=== PATIENT | male | born 1955 | race Caucasian/White ===

== ENCOUNTER 2019-06-08 13:07 | Inpatient (IN) | payer MEDICARE, OTHER, SELFPAY ==
[2019-06-08] VITALS (8 sets, daily range): BP systolic 93–144; BP diastolic 45–74; PULSE 62–67; RESP 16–20; TEMP 36.4–36.8; O2SAT 96–99; BMI 33.9
--- NOTE | ~2019-06-08 | CT_ITS ---
EXAMINATION: CT abdomen pelvis wo con DATE: 06/08/2019 14:27 INDICATION: Abdominal pain, nausea and vomiting, renal cell carcinoma metastatic to the lungs TECHNIQUE: Computed tomography (CT) of the abdomen and pelvis was performed without intravenous contr ast. The dose-length product (DLP) was 1146.87 mGy-cm. Automated exposure control and iterative recon struction technique were employed. COMPARISON: None FINDINGS: There are greater than 10 nodules of the visualized lung bases which measure up to 7 mm. Th ere is no pleural effusion. The heart size is normal. The liver, spleen, pancreas, gallbladder, and l eft adrenal gland are normal. There appear to be changes of right nephrectomy and adrenalectomy. Ther e is a 2.5 x 1.6 cm periportal soft tissue density (image 62). Punctate nonobstructing calculi of the right kidney measure up to 2 mm. There is a 4 mm hemorrhagic cyst of the left kidney. There is no fr ee intraperitoneal gas or evidence of bowel obstruction. There is liquid stool throughout the abdomen to the level of the rectum which could reflect diarrhea. There are bilateral L5 pars defects. IMPRESSION: 1. Liquid stool throughout the colon, consistent with diarrhea. No evidence of colitis. 2. Multiple nodules of the visualized lung bases, likely reflecting known metastatic renal cell carci noma. 3. Periportal soft tissue density which may reflect metastatic disease. No prior studies available fo r comparison. Reviewed, dictated and finalized at location A. MENT MANAGEMENT CONSULTANT IMPRESSION: 1. Liquid stool throughout the colon, consistent with diarrhea. No evidence of colitis. 2. Multiple nodules of the visualized lung bases, likely reflecting known metas tatic renal cell carcinoma. 3. Periportal soft tissue density which may reflect metastatic disease. No prio r studies available for comparison.
--- NOTE | ~2019-06-08 | CT_ITS ---
EXAMINATION: CT brain wo con EXAM DATE: 06/10/2019 09:35 INDICATION: Lung and kidney cancer. Lethargy. TECHNIQUE: Spiral CT of the head was performed without contrast. Axial, coronal and sagittal images were reviewed. The dose-length product (DLP) for this examination was 681.00 mGy-cm. The exposure w as tailored according to patient size, and iterative reconstruction (ASIR) was used as additional dos e reduction technique. There is no prior study for comparison. FINDINGS: There is no acute intraparenchymal hemorrhage. No evidence of intraparenchymal brain mass lesion. No evidence of acute infarction. Please note that initial head CT has limited sensitivity f or small or acute infarctions. There is mild periventricular and subcortical hypodensity, nonspecific but probably related to small vessel ischemic disease. There is mild prominence of the sulci and v entricles related to cerebral atrophy. There is intracranial carotid arteriosclerosis. There are n o extra-axial collections. There is no mass effect or midline shift. The orbits are unremarkable. Soft tissue is unremarkable. The visualized sinuses and mastoid air cells are well aerated. IMPRESSION: 1. No acute intracranial findings. 2. Chronic age related findings. Reviewed, dictated and finalized at location B. NT FINISHER HELPER
--- NOTE | ~2019-06-08 | CT_ITS ---
EXAMINATION: CT chest abdomen pelvis wo con EXAM DATE: 06/10/2019 09:36 INDICATION: Nausea vomiting diarrhea, tachypnea. Hematuria. Kidney and lung cancer. Right nephrectomy . TECHNIQUE: Spiral CT of the chest, abdomen and pelvis was performed without contrast. Axial, la l and sagittal images were reviewed. Coronal maximum intensity pixel images of chest reviewed. The dose-length product (DLP) for this examination was 1260.45 mGy-cm. The exposure was tailored accordi ng to patient size (auto mA exposure control), and iterative reconstruction (ASIR) was used as additi onal dose reduction technique. Comparison is made to prior examination from 06/08/2019, abdomen and pe lvis CT. FINDINGS: CHEST: There are some scattered bilateral pulmonary nodules, 2 largest probably in the left lower lo be, image 67 at 6 and 4 mm. There is linear left upper lobe atelectasis. Probable right hilar lymph n ode measuring 2.5 x 1.5 cm. There are no pleural or pericardial effusions. Tracheobronchial tree i s patent. There is no mediastinal, hilar or axillary lymphadenopathy. There is no pneumothorax. There is mild cardiomegaly. The interventricular septum is perceptible, suggesting patient is anemic . There is mild to moderate coronary arterial calcification, arterial sclerosis. There is mild emp hysema. ABDOMEN PELVIS: There is soft tissue density mass in the right renal fossa measuring 3.3 x 2.5 cm. Th ere is a periportal lymph node measuring 2.5 x 1.7 cm. Can't identify the right adrenal gland with i ll-defined soft tissue or fluid between the nephrectomy bed in the hepatic liver lobe. There is a foc al nodule in the left adrenal gland measuring 9 mm, indeterminate. Left kidney is unremarkable. Gall bladder is unremarkable. No biliary obstruction. The prostate is unremarkable. The bladder is un remarkable. There is no retroperitoneal or pelvic lymphadenopathy. There is moderate scattered art eriosclerotic disease. Tiny umbilical and small left inguinal fat-containing hernias. The appendix is normal. The stomach and small bowel are unremarkable. There is colonic fluid, corre late for diarrhea. No free intraperitoneal gas. Several small pelvic sclerotic foci, probably bon e islands largest in the right sacral alum measuring 10 mm. No vertebral body or rib sclerotic foci. There is chronic bilateral L5 spondylolysis with grade 1 anterolisthesis L5 on S1. IMPRESSION: 1. Scattered pulmonary nodules consistent with metastatic disease. 2. Probable left hilar lymphadenopathy. 3. Left upper lobe subsegmental atelectasis. 4. Mild emphysema. 5. Soft tissue ovoid shaped mass in right renal fossa, could be lymphadenopathy or local recurrence of kidney cancer. Mildly enlarged periportal lymph node. 6. Small pelvic sclerotic foci most likely bone islands. 7. Colonic fluid. Reviewed, dictated and finalized at location B. CIATE PROFESSOR OF HISTORY IMPRESSION: 1. Scattered pulmonary nodules consistent with metastatic disease. 2. Probable left hilar lymphadenopathy. 3. Left upper lobe subsegmental atelectasis. 4. Mild emphysema. 5. Soft tissue ovoid shaped mass in right renal fossa, could be lymphadenopath y or local recurrence of kidney cancer. Mildly enlarged periportal lymph node. 6. Small pelvic sclerotic foci most likely bone islands. 7. Colonic fluid.
--- NOTE | ~2019-06-08 | NM_ITS ---
EXAMINATION: NM lung vent and perfusion EXAM DATE: 06/12/2019 12:16 INDICATION: Shortness of breath. TECHNIQUE: A ventilation perfusion lung scan was performed. The patient inhaled 15.3 mCi xenon-133 w hile images were acquired. The patient was then injected with 5.3 mCi technetium 99m MAA and reimage d. Correlation is made to chest x-ray from yesterday. FINDINGS: There is homogeneous radiotracer activity throughout the lungs on the single breath ventil ation sequence. There is mildly heterogeneous perfusion throughout the lungs without focal segmental defects. No discrete ventilation and perfusion mismatch is identified. Mildly delayed tracer retentio n on washout phase, mild air trapping. IMPRESSION: Low probability pulmonary embolism. Reviewed, dictated and finalized at location B. ING EQUIPMENT MECHANIC
--- NOTE | ~2019-06-08 | US_ITS ---
EXAMINATION: US venous doppler LE EXAM DATE: 06/12/2019 12:01 INDICATION: Elevated d-dimer. Lung, kidney cancer. Tachypnea. TECHNIQUE: Multiple grayscale, color flow and Doppler images of the lower extremity deep venous syste ms bilaterally were obtained and reviewed. There is no prior study for comparison. FINDINGS: Right side: The right common femoral, femoral and profunda veins demonstrate normal color flow, respi ratory variation, augmentation and compressibility. Compressibility, color flow confirmed within the right popliteal, posterior tibial, peroneal, and greater saphenous veins. Left side: The left common femoral, femoral and profunda veins demonstrate normal color flow, respira tory variation, augmentation and compressibility. Compressibility, color flow confirmed within the l eft popliteal, posterior tibial, peroneal, and greater saphenous veins. IMPRESSION: 1. No lower extremity deep venous thrombosis bilaterally. Reviewed, dictated and finalized at location B. Y EQUIPMENT ENGINE MECHANIC
--- NOTE | ~2019-06-08 | XR_ITS ---
EXAMINATION: XR chest 1V portable EXAM DATE: 06/11/2019 13:46 INDICATION: Shortness of breath and weakness. TECHNIQUE: Portable AP frontal chest x-ray was obtained. There is no prior study for comparison. FINDINGS: Cardiomegaly and pulmonary vascular congestion. Bilateral perihilar linear opacities probab ly subsegmental atelectasis. Possible pulmonary edema or confluent bronchopneumonia. There is no pneu mothorax suspected. There are no pleural effusions. There are no osseous abnormalities identified. IMPRESSION: 1. Cardiomegaly, congestion. 2. Linear perihilar atelectasis. 3. Possible edema or pneumonia. Reviewed, dictated and finalized at location B. ANTY ADMINISTRATOR
[2019-06-08 13:29] LABS: Basophils Percent Auto 0.5 % (0.2-1.2); Eosinophils Absolute Auto 0.3 K/mm3 (0-0.3); Eosinophils Percent Auto 3.4 % (0-4.4); Hematocrit 30.4 % (42.0-52.0); Hemoglobin 10.3 g/dL (14.0-18.0); Immature Granulocyte Absolute 0.03 K/mm3 (0.00-0.031); Immature Granulocyte Percent A 0.4 % (0-0.5); Lymphocytes Absolute Auto 1.78 K/mm3 (0.9-3.2); Lymphocytes Percent Auto 22.4 % (18.3-44.2); Mean Corpuscular HGB Conc 33.9 g/dl (32-36); Mean Corpuscular Hemoglobin 32.1 pg (26-34); Mean Corpuscular Volume 94.7 fl (80-100); Mean Platelet Volume 9.6 fl (7.4-10.4); Monocytes Percent Auto 12.7 % (2.6-8.5); Neutrophils Absolute Auto 4.8 K/mm3 (1.3-6.7); Neutrophils Percent Auto 60.6 % (45.5-73.1); Platelet Count Result 210 k/mm3 (150-375); Red Blood Count 3.21 M/mm3 (4.6-6.20); Red Cell Distribution Width 12.4 % (11.5-14.5); White Blood Count 7.9 K/mm3 (4.5-10.0)
[2019-06-08 13:47] LABS: Alanine Aminotransferase 18 U/L (4-50); Albumin Level 4.5 g/dL (3.5-5.1); Alkaline Phosphatase 50 U/L (38-126); Aspartate Amino Transferase 22 U/L (17-59); Bilirubin,Total 0.6 mg/dL (0.2-1.3); Blood Urea Nitrogen 39 mg/dL (9-20); Calcium 9.2 mg/dL (8.4-10.2); Carbon Dioxide 18 mmol/L (22-30); Chloride 102 mmol/L (98-107); Estimated CRCL calculation 19 ml/min; Estimated Glomerular Filt Rate 14; Glucose 111 mg/dL (75-110); Lipase 96 U/L (23-300); Sodium 136 mmol/L (137-145)
--- NOTE | 2019-06-08 13:54 | ED.NAVMDI ---
HPI - Nausea/Vomiting/Diarrhea General Chief complaint: Nausea/Vomiting/Diarrhea Stated complaint: vomiting, diarrhea Time Seen by Provider: 06/08/19 13:52 Source: patient Mode of arrival: ambulatory Limitations: no limitations History of Present Illness HPI Narrative: Pt is a 63 y/o male who presents to the ED with c/o N/V/D for 4 days. Pt states that he cannot eat or drink anything. He is on immunotherapy for his H/o kidney CA that metastasized to his lungs. He notes that he has dizziness/lightheadedness in the mornings, generalized weakness, and chills. Pt denies ABD pain, fever, sweats, cough, BRITTON, or myalgia. He notes that has DREAD shoulder pain but he attributes it to his treatments. Pt's oncologist is Dr. Sexton at [facility]. Pt called his oncologist and the recommended he come to the ED for fluids. Pt has a H/o a rt nephrectomy and per family at bedside, his creatinine is normally high. His PCP is Dr. Pabon. He notes that he gets blood work done every month before he gets his treatments. Pt states that he lives alone and has not been around anyone with the same Sx. Pt has never had N/V as a side affect from his therapy. MD elicited complaint: nausea, vomiting and diarrhea Onset (ago): day(s) (4) Associated abdominal pain: No Exacerbating factors: eating Context: other (immunotherapy) Associated symptoms: other (chills, generalized weakness, dizziness, lightheadedness) Related Data Home Medications Medication Instructions Recorded Confirmed carvedilol 06/08/19 chlorthalidone 06/08/19 glimepiride mg 06/08/19 losartan 06/08/19 simvastatin mg 06/08/19 Allergies Allergy/AdvReac Type Severity Reaction Status Date / Time No Known Allergies Allergy Verified 06/08/19 14:22 Review of Systems Review of Systems: All systems reviewed & are unremarkable except as noted in HPI and below Constitutional: Constitutional: Denies body ache(s), Reports chills, Denies fever(s), Reports weakness (generalized) and Denies other (sweats) Cardiovascular: Cardiovascular: Reports lightheadedness Respiratory: Respiratory: Denies cough Gastrointestinal: Gastrointestinal: Denies abdominal pain, Reports diarrhea, Reports nausea and Reports vomiting Musculoskeletal: Musculoskeletal: Reports other (DREAD shoulder pain) Neurologic: Reports dizziness and Denies headache(s) [facility] Past Medical History Medical History (Updated 06/08/19 @ 15:48 by Marixa Franco MD) Diabetes mellitus History of kidney cancer HLD (hyperlipidemia) HTN (hypertension) Lung cancer Surgical History Surgical History (Updated 06/08/19 @ 14:11 by Mateusz Ramirez) H/O right nephrectomy Social History Social History (Updated 06/08/19 @ 14:11 by Mateusz Ramirez) Smoking status: Former smoker Additional smoking assessment comments: quit smoking 20 years ago Gender identity (if verbalized by the patient): Male Exam Const: General: cooperative, no acute distress and alert Nutritional Appearance: obese Orientation/consciousness: patient oriented x3 Limitations: no limitations HENMT: Mouth: Yes lip normal and Yes dry mucous membranes (slightly) Throat: uvula midline Resp: Effort & Inspection: normal respiratory effort Auscultation: clear to auscultation bilaterally Cardio: Rate: regular rate Rhythm: regular rhythm GI: GI Palp: Yes Soft to palpation, No Tenderness to palpation present (GI) and Yes Guarding due to palpation present (GI) (RUQ) Auscultation: normal bowel sounds Skin: General skin exam: normal color Neuro: General: patient oriented x3 Cognition (Neuro): normal cognition Speech: normal speech Extrem: General: normal to inspection, full ROM and no clubbing, cyanosis or edema Psych: Mental Status: mental status grossly normal Affect: normal affect Attitude: cooperative Course Course Emergency Course: Patient with acute on chronic renal failure secondary to dehydration. Patient without acute intra-abdominal findi
[2019-06-08] MEDS: LACTATED RINGERS 1,000 ML 999 ML IV CONT (14:34)
[2019-06-08 15:06] LABS: Lactic Acid Reflex 1.1 mmol/L (0.7-2.1)
[2019-06-08] MEDS: LACTATED RINGERS 1,000 ML 150 ML IV CONT (16:22)
--- NOTE | 2019-06-08 16:36 | PC.NURSE ---
Pt. attempted to urinate multiple times after fluid administration. Pt. has been informed of being straight to see if Pt. has any urine in bladder and need a sample to be sent.
[2019-06-08 17:33] LABS: Add Urine Microscopic? YES; Amorphous Sediment Urine Moderate; Appearance Urine Cloudy (Clear); Bacteria Urine 1+ /hpf; Bilirubin Urine Negative (Negative); Blood Urine Negative (Negative); Color Urine Yellow (Yellow); Glucose Urine UA Negative (Negative); Hyaline Casts Urine 15-19 /lpf; Ketones Urine Negative (Negative); Leukocyte Esterase Ur Negative LEU/UL (Negative); Mucus Urine Rare /lpf; Nitrate Urine Negative (Negative); Protein Urine 2+ mg/dL (Negative); RBC Urine 0-2 /hpf (0-2); Specific Grav Ur 1.015 (1.001-1.035); Squamous Epithelial Cell Urine Occasional /hpf (Few); WBC Urine 0-3 /hpf
--- NOTE | 2019-06-08 18:20 | ADMGEN ---
This patient, Carlos Dang, was admitted to Medical Room 250-. Patient/family oriented to hospital policies and general routines including ID bracelet, bed and alarms, visiting hours, pain management, procedures, bathroom and other care routines, personal items, smoking policy, room service/diet, and visiting hours. Valuables list has been completed. Information on how to activate the Rapid Response Team has been discussed. Patient/Family are encouraged to report perceived risks to care and to ask questions if they do not understand what they are told or what they should do.
[2019-06-08 18:23] LABS: Glucose Point of Care 81 (65-105)
[2019-06-08 22:55] LABS: Glucose Point of Care 102 (65-105)
[2019-06-08 22:55] LABS: Glucose Point of Care 63 (65-105)
[2019-06-09] MEDS: LACTATED RINGERS 1,000 ML 150 ML IV CONT ×2 (00:01→06:38)
[2019-06-09 06:00] VITALS: BP 134/44; PULSE 63; RESP 20; TEMP 36.8; O2SAT 98
[2019-06-09] MEDS: ONDANSETRON INJ 4 MG/2 ML VIAL IV PUSH (06:38)
[2019-06-09 08:50] LABS: Basophils Percent Auto 0.5 % (0.2-1.2); Eosinophils Absolute Auto 0.3 K/mm3 (0-0.3); Eosinophils Percent Auto 4.6 % (0-4.4); Hematocrit 26.8 % (42.0-52.0); Hemoglobin 9.1 g/dL (14.0-18.0); Immature Granulocyte Absolute 0.01 K/mm3 (0.00-0.031); Immature Granulocyte Percent A 0.2 % (0-0.5); Lymphocytes Absolute Auto 1.32 K/mm3 (0.9-3.2); Lymphocytes Percent Auto 23.6 % (18.3-44.2); Mean Corpuscular Hemoglobin 32.3 pg (26-34); Mean Platelet Volume 9.6 fl (7.4-10.4); Monocytes Absolute Auto 0.7 K/mm3 (0.1-0.6); Monocytes Percent Auto 12.1 % (2.6-8.5); Neutrophils Absolute Auto 3.3 K/mm3 (1.3-6.7); Platelet Count Result 185 k/mm3 (150-375); Red Blood Count 2.82 M/mm3 (4.6-6.20); Red Cell Distribution Width 12.3 % (11.5-14.5); White Blood Count 5.6 K/mm3 (4.5-10.0)
[2019-06-09 09:07] LABS: Blood Urea Nitrogen 39 mg/dL (9-20); Calcium 8.4 mg/dL (8.4-10.2); Carbon Dioxide 18 mmol/L (22-30); Chloride 103 mmol/L (98-107); Estimated CRCL calculation 24 ml/min; Estimated Glomerular Filt Rate 19; Glucose 161 mg/dL (75-110); Sodium 134 mmol/L (137-145)
[2019-06-09 09:11] LABS: Glucose Point of Care 156 (65-105)
[2019-06-09 09:14] VITALS: PULSE 64
[2019-06-09] MEDS: carvediloL 25 MG TABLET PO ×2 (09:14→16:24)
[2019-06-09] MEDS: LOSARTAN POTASSIUM 50 MG TABLET 100 MG PO (09:15)
[2019-06-09] MEDS: SIMVASTATIN 20 MG TABLET 40 MG PO (09:15)
--- NOTE | 2019-06-09 11:00 | PM.IMHP ---
H&P: HPI History of Present Illness Chief complaint: nausea, vomiting, diarrhea <Megan Carr PA-C - Last Filed: 06/09/19 19:26> Narrative: Date of service is 06/09/2019 The supervising physician for this history and physical is Dr. Boles. Carlos Dang is a 63yo M with history of renal cell carcinoma with metastasis to the lungs, s/p right total nephrectomy with chronic kidney disease, non insulin-dependent type 2 diabetes mellitus, hypertension, and hyperlipidemia who presented to the ED for evaluation of nausea, vomiting, and diarrhea. He reports his symptoms began Saturday, 4 days prior to arrival. He reports he was not really vomiting large amounts, more so dry heaving. He does continue to have diarrhea and reports he had 7 or 8 watery bowel movements since about dinnertime last night. He denies any melena, hematochezia, or hematemesis. He denies any recent travel. He does state that about 2 weeks ago he finished a 10 day course of amoxicillin for respiratory symptoms. He denies any chest pain, shortness of breath, cough, fever or chills, or sick contacts at home. He denies any dizziness or lightheadedness. He reports he is feeling better this morning. He is admitted to observation for acute renal failure on chronic kidney disease. His oncologist is Dr. Sexton at [place] and he receives immunotherapy through his office. His last immunotherapy treatment was 06/04/19. His symptoms began the day after. He reported he sometimes feels a little tired after these treatments, but never these GI symptoms. He was scheduled to see a cognos bi developer, Dr German, at [place] yesterday to establish care as a new patient but he was not feeling well enough to go. His next appointment with his oncologist is 06/25/19 for immunotherapy and his rescheduled appointment with the cognos bi developer is 07/06/19. <Megan Carr PA-C - Last Filed: 06/09/19 19:26> Review of Systems Review of Systems: Narrative: He continues to have nonbloody diarrhea. His nausea is improved this morning. He denies any chest pain, shortness of breath, or cough. Dizziness, lightheadedness or syncope. Twelve systems were reviewed with pertinent positives and negatives as per HPI. Except as documented, all other systems were reviewed and are negative. <Megan Carr PA-C - Last Filed: 06/09/19 19:26> [facility] Past Medical History Medical History: Medical History Diabetes mellitus History of kidney cancer HLD (hyperlipidemia) HTN (hypertension) Lung cancer <Megan Carr PA-C - Last Filed: 06/09/19 19:26> Surgical History Surgical History: Surgical History H/O melanoma excision Around 2014 H/O right nephrectomy 08/18/2018 <Megan Carr PA-C - Last Filed: 06/09/19 19:26> Family History Family History: Family History Mother Leukemia Brain tumor Father Skin cancer Hypertension Renal failure <Megan Carr PA-C - Last Filed: 06/09/19 19:26> Social History Social History: Social History (Updated 06/09/19 @ 11:19 by Megan Carr PA-C) Social History: 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 He lives at home alone in [place]. He reports drinking alcohol very rarely, maybe a couple drinks per year. He smoked 1 pack per day of cigarettes x20 years and quit 20 years ago. No other substance use. His PCP is Dr. Pabon. He designates his surrogate decision maker as Crystal Gan. Smoking packs per day: 1 Smoking cigarettes per day: 20.0 Smoking status: Former smoker Additional smoking assessment comments: quit smoking 20 years ago Alcohol intake: current Substance use: never Gender identity (if verbalized by
[2019-06-09 12:06] LABS: Influenza Control Positive
[2019-06-09 12:14] LABS: Glucose Point of Care 115 (65-105)
[2019-06-09 13:42] LABS: IFOB Positive Control Positive; Immunochemical Fecal Occult Bl Negative (N)
[2019-06-09 14:00] VITALS: BP 115/61; PULSE 63; RESP 15; TEMP 36.6; O2SAT 99
[2019-06-09] MEDS: LACTATED RINGERS 1,000 ML 125 ML IV CONT ×2 (14:11→22:35)
[2019-06-09 16:24] VITALS: PULSE 63
[2019-06-09 16:32] LABS: Glucose Point of Care 106 (65-105)
[2019-06-09 21:16] LABS: Glucose Point of Care 142 (65-105)
[2019-06-09 22:03] VITALS: BP 159/45; PULSE 64; RESP 16; TEMP 37; O2SAT 98
[2019-06-10] VITALS (13 sets, daily range): BP systolic 79–149; BP diastolic 31–92; PULSE 68–88; RESP 18–26; TEMP 36.6–37.3; O2SAT 88–99
[2019-06-10] MEDS: ONDANSETRON INJ 4 MG/2 ML VIAL IV PUSH (04:46)
[2019-06-10 05:40] LABS: Hematocrit 29.7 % (42.0-52.0); Hemoglobin 10.2 g/dL (14.0-18.0); Mean Corpuscular HGB Conc 34.3 g/dl (32-36); Mean Corpuscular Hemoglobin 32.2 pg (26-34); Mean Corpuscular Volume 93.7 fl (80-100); Mean Platelet Volume 9.6 fl (7.4-10.4); Platelet Count Result 188 k/mm3 (150-375); Red Blood Count 3.17 M/mm3 (4.6-6.20); Red Cell Distribution Width 12.1 % (11.5-14.5); White Blood Count 8.2 K/mm3 (4.5-10.0)
[2019-06-10 05:57] LABS: Blood Urea Nitrogen 35 mg/dL (9-20); Calcium 9.3 mg/dL (8.4-10.2); Carbon Dioxide 21 mmol/L (22-30); Chloride 105 mmol/L (98-107); Estimated CRCL calculation 25 ml/min; Estimated Glomerular Filt Rate 20; Glucose 124 mg/dL (75-110); Phosphorus 3.4 mg/dL (2.5-4.5); Potassium 5.2 mmol/L (3.4-5.0); Sodium 138 mmol/L (137-145)
[2019-06-10] MEDS: LACTATED RINGERS 1,000 ML 125 ML IV CONT ×2 (06:43→15:10)
[2019-06-10] MEDS: MAGNESIUM SULF 4 GM/WATER100ML 4 GM/100 ML BAG IVPB (08:26)
[2019-06-10 10:38] LABS: Glucose Point of Care 110 (65-105)
--- NOTE | 2019-06-10 10:52 | P.PNIM_ITS ---
Progress Note: A&P Assessment and Plan (1) Acute on chronic renal failure: Qualifiers: Acute renal failure type: unspecified Chronic kidney disease stage: unspecified stage Qualified Code(s): N17.9 - Acute kidney failure, unspecified; N18.9 - Chronic kidney disease, unspecified <Megan Carr PA-C - Last Filed: 06/10/19 21:08> Code(s): N17.9 - Acute kidney failure, unspecified; N18.9 - Chronic kidney disease, unspecified <Megan Carr PA-C - Last Filed: 06/10/19 21:08> Status: Acute <Megan Carr PA-C - Last Filed: 06/10/19 21:08> Assessment and Plan: * ED record shows his oncologist was contacted and reported his baseline Cr is around 2. He is s/p right total nephrectomy last year secondary to renal cell carcinoma. * Cr 4.2 on arrival, improved to 3.1 with IV hydration. * [place] to be secondary to dehydration with diarrhea, vomiting. * Continue IV hydration and monitor renal function. Avoid nephrotoxic medications. * Follow-up with his new cable spooler at [place] after discharge. <Megan Carr PA-C - Last Filed: 06/10/19 21:08> (2) Metabolic encephalopathy: Code(s): G93.41 - Metabolic encephalopathy <Megan Carr PA-C - Last Filed: 06/10/19 21:08> Status: Acute <Megan Carr PA-C - Last Filed: 06/10/19 21:08> Assessment and Plan: * Lethargic this AM. Hypotensive this afternoon and rapid response was called. On reassessment, patient is more lethargic. Acute metabolic encephalopathy may be secondary to UTI. Urine and blood cultures drawn. Repeat UA now with positive nitrates and leukocyte esterase. Rocephin started with urine culture pending. * Monitor vital signs and urine output closely. Bloody penile discharge is likely traumatic from catheterization for UA on arrival. * CT brain shows no acute intracranial abnormalities. * Discussed case with Dr Salazar. Appreciate neurology consultation. <CAS Harrington-C - Last Filed: 06/10/19 21:08> (3) Metastatic renal cell carcinoma to lung: Qualifiers: Laterality: unspecified laterality Qualified Code(s): C78.00 - Secondary malignant neoplasm of unspecified lung; C64.9 - Malignant neoplasm of unspecified kidney, except renal pelvis <CAS Harrington-C - Last Filed: 06/10/19 21:08> Code(s): C78.00 - Secondary malignant neoplasm of unspecified lung; C64.9 - Malignant neoplasm of unspecified kidney, except renal pelvis <CAS Harrington-C - Last Filed: 06/10/19 21:08> Status: Acute <CAS Harrington-C - Last Filed: 06/10/19 21:08> Assessment and Plan: * Patient is s/p right total nephrectomy last spring after being diagnosed with renal cell carcinoma. He has known metastasis to lungs. * CT abdomen here shows a soft tissue density which could either be lymphadenopathy or recurrence of his renal cell carcinoma. * His oncologist is Dr Sexton at [place] who he is scheduled to see 06/25. <KELSEY HarringtonC - Last Filed: 06/10/19 21:08> (4) UTI (urinary tract infection): Qualifiers: Hematuria presence: with hematuria Urinary tract infection type: site unspecified Qualified Code(s): N39.0 - Urinary tract infection, site not specified; R31.9 - Hematuria, unspecified <CAS Harrington-C - Last Filed: 06/10/19 21:08> Code(s): N39.0 - Urinary tract infection, site not specified <CAS Harrington-C - Last Filed: 06/10/19 21:08> Status: Acute <KELSEY HarringtonC - Last
--- NOTE | 2019-06-10 10:52 | PM.IMPN ---
Progress Note: A&P Assessment and Plan (1) Acute on chronic renal failure: Qualifiers: Acute renal failure type: unspecified Chronic kidney disease stage: unspecified stage Qualified Code(s): N17.9 - Acute kidney failure, unspecified; N18.9 - Chronic kidney disease, unspecified <Megan Carr PA-C - Last Filed: 06/10/19 21:08> Code(s): N17.9 - Acute kidney failure, unspecified; N18.9 - Chronic kidney disease, unspecified <Megan Carr PA-C - Last Filed: 06/10/19 21:08> Status: Acute <Megan Carr PA-C - Last Filed: 06/10/19 21:08> Assessment and Plan: ED record shows his oncologist was contacted and reported his baseline Cr is around 2. He is s/p right total nephrectomy last year secondary to renal cell carcinoma. Cr 4.2 on arrival, improved to 3.1 with IV hydration. [place] to be secondary to dehydration with diarrhea, vomiting. Continue IV hydration and monitor renal function. Avoid nephrotoxic medications. Follow-up with his new utility specialist at [facility] after discharge. <Megan Carr PA-C - Last Filed: 06/10/19 21:08> (2) Metabolic encephalopathy: Code(s): G93.41 - Metabolic encephalopathy <Megan Carr PA-C - Last Filed: 06/10/19 21:08> Status: Acute <Megan Carr PA-C - Last Filed: 06/10/19 21:08> Assessment and Plan: Lethargic this AM. Hypotensive this afternoon and rapid response was called. On reassessment, patient is more lethargic. Acute metabolic encephalopathy may be secondary to UTI. Urine and blood cultures drawn. Repeat UA now with positive nitrates and leukocyte esterase. Rocephin started with urine culture pending. Monitor vital signs and urine output closely. Bloody penile discharge is likely traumatic from catheterization for UA on arrival. CT brain shows no acute intracranial abnormalities. Discussed case with Dr Salazar. Appreciate neurology consultation. <Megan Carr PA-C - Last Filed: 06/10/19 21:08> (3) Metastatic renal cell carcinoma to lung: Qualifiers: Laterality: unspecified laterality Qualified Code(s): C78.00 - Secondary malignant neoplasm of unspecified lung; C64.9 - Malignant neoplasm of unspecified kidney, except renal pelvis <Megan Carr PA-C - Last Filed: 06/10/19 21:08> Code(s): C78.00 - Secondary malignant neoplasm of unspecified lung; C64.9 - Malignant neoplasm of unspecified kidney, except renal pelvis <Megan Carr PA-C - Last Filed: 06/10/19 21:08> Status: Acute <Megan Carr PA-C - Last Filed: 06/10/19 21:08> Assessment and Plan: Patient is s/p right total nephrectomy last spring after being diagnosed with renal cell carcinoma. He has known metastasis to lungs. CT abdomen here shows a soft tissue density which could either be lymphadenopathy or recurrence of his renal cell carcinoma. His oncologist is Dr Sexton at [facility] who he is scheduled to see 06/25. <Megan Carr PA-C - Last Filed: 06/10/19 21:08> (4) UTI (urinary tract infection): Qualifiers: Hematuria presence: with hematuria Urinary tract infection type: site unspecified Qualified Code(s): N39.0 - Urinary tract infection, site not specified; R31.9 - Hematuria, unspecified <Megan Carr PA-C - Last Filed: 06/10/19 21:08> Code(s): N39.0 - Urinary tract infection, site not specified <Megan Carr PA-C - Last Filed: 06/10/19 21:08> Status: Acute <Megan Carr PA-C - Last Filed: 06/10/19 21:08> Assessment and Plan: May be causing his change in mental status today. Repeat UA after change in his status now shows positive nitrates and leukocyte esterase. Started on Rocephin with urine cultures pending. Blood cultures pending.
[2019-06-10 14:15] LABS: Glucose Point of Care 151 (65-105)
[2019-06-10] MEDS: SODIUM CHLORIDE 0.9% IV 500 ML 999 ML IV CONT (14:20)
[2019-06-10 14:32] LABS: Glucose Point of Care 148 (65-105)
[2019-06-10 15:17] LABS: Ammonia < 9 umol/L (9-30)
[2019-06-10 15:25] LABS: Blood Urea Nitrogen 35 mg/dL (9-20); Calcium 9.1 mg/dL (8.4-10.2); Carbon Dioxide 18 mmol/L (22-30); Chloride 103 mmol/L (98-107); Estimated CRCL calculation 20 ml/min; Estimated Glomerular Filt Rate 16; Glucose 147 mg/dL (75-110); Potassium 5.2 mmol/L (3.4-5.0); Sodium 133 mmol/L (137-145)
[2019-06-10 16:24] LABS: Add Urine Microscopic? YES; Amorphous Sediment Urine Moderate; Appearance Urine Clear (Clear); Bacteria Urine Trace /hpf; Bilirubin Urine Negative (Negative); Blood Urine 2+ (Negative); Color Urine Yellow (Yellow); Glucose Urine UA Negative (Negative); Ketones Urine Negative (Negative); Leukocyte Esterase Ur 1+ LEU/UL (Negative); Mucus Urine Rare /lpf; Nitrate Urine Positive (Negative); Protein Urine Negative (Negative); Specific Grav Ur 1.012 (1.001-1.035); Urobilinogen Urine Negative mg/dL (<2.0)
[2019-06-10 16:56] LABS: Alveolar/Arterial O2 Gradient 98.3 mmHg; Base Excess ABG -6.8 mEq/l (+/-2.0); Fractional Inspired Oxygen 28 %; HCO3 ABG 17.5 mEq/l (22.0-26.0); Oxygen Saturation ABG 92.7 % (95.0-100.0); Oxyhemoglobin 90.9 % THb (90.0-100.0); PCO2 ABG 30.6 mmHg (35.0-45.0); PO2 ABG 65.2 mmHg (80.0-100.0); PO2 FiO2 Ratio Arterial Blood 2.33 %; Total Hemoglobin 9.3 g/dL (12.0-18.0); pH ABG 7.375 (7.350-7.450)
[2019-06-10] MEDS: LACTATED RINGERS 1,000 ML 100 ML IV CONT (17:37)
[2019-06-10 17:54] LABS: Modified Allen's Test Pass; Site Drawn RIGHT RADIAL
[2019-06-10 17:55] LABS: Device NASAL CANNULA
[2019-06-10 18:25] LABS: Glucose Point of Care 123 (65-105)
[2019-06-11] VITALS (16 sets, daily range): BP systolic 127–168; BP diastolic 39–54; PULSE 65–98; RESP 16–36; TEMP 36.2–38; O2SAT 96–100
[2019-06-11] MEDS: LACTATED RINGERS 1,000 ML 100 ML IV CONT (01:43)
[2019-06-11] MEDS: ONDANSETRON INJ 4 MG/2 ML VIAL IV PUSH (03:09)
[2019-06-11 05:05] LABS: Basophils Percent Auto 0.3 % (0.2-1.2); Eosinophils Absolute Auto 0.1 K/mm3 (0-0.3); Eosinophils Percent Auto 1.7 % (0-4.4); Hematocrit 25.3 % (42.0-52.0); Hemoglobin 8.5 g/dL (14.0-18.0); Immature Granulocyte Absolute 0.02 K/mm3 (0.00-0.031); Immature Granulocyte Percent A 0.3 % (0-0.5); Lymphocytes Absolute Auto 1.04 K/mm3 (0.9-3.2); Lymphocytes Percent Auto 13.8 % (18.3-44.2); Mean Corpuscular HGB Conc 33.6 g/dl (32-36); Mean Corpuscular Hemoglobin 32.4 pg (26-34); Mean Corpuscular Volume 96.6 fl (80-100); Mean Platelet Volume 9.8 fl (7.4-10.4); Monocytes Absolute Auto 0.9 K/mm3 (0.1-0.6); Monocytes Percent Auto 12.3 % (2.6-8.5); Neutrophils Absolute Auto 5.4 K/mm3 (1.3-6.7); Neutrophils Percent Auto 71.6 % (45.5-73.1); Platelet Count Result 140 k/mm3 (150-375); Red Blood Count 2.62 M/mm3 (4.6-6.20); Red Cell Distribution Width 12.4 % (11.5-14.5); White Blood Count 7.6 K/mm3 (4.5-10.0)
[2019-06-11 05:12] LABS: INR 1.2; Prothrombin Time 14.7 Seconds (11.1-14.7)
[2019-06-11 05:22] LABS: Alanine Aminotransferase 15 U/L (4-50); Albumin Level 3.4 g/dL (3.5-5.1); Alkaline Phosphatase 40 U/L (38-126); Aspartate Amino Transferase 27 U/L (17-59); Bilirubin,Total 0.4 mg/dL (0.2-1.3); Blood Urea Nitrogen 33 mg/dL (9-20); Calcium 8.5 mg/dL (8.4-10.2); Carbon Dioxide 20 mmol/L (22-30); Chloride 106 mmol/L (98-107); Estimated CRCL calculation 21 ml/min; Estimated Glomerular Filt Rate 17; Glucose 122 mg/dL (75-110); Magnesium 1.7 mg/dL (1.6-2.3); Phosphorus 2.6 mg/dL (2.5-4.5); Potassium 4.5 mmol/L (3.4-5.0); Sodium 135 mmol/L (137-145)
[2019-06-11 08:44] LABS: Glucose Point of Care 110 (65-105)
[2019-06-11 12:02] LABS: Glucose Point of Care 115 (65-105)
[2019-06-11 13:10] LABS: D Dimer 5.86 ug/mL (<0.48)
--- NOTE | 2019-06-11 14:08 | CONS_ITS ---
DATE OF CONSULTATION: 06/09/[address] Ada Salazar. HISTORY OF PRESENT ILLNESS: This 63 years old has been admitted to [facility] through the emergency room for the complaints of nausea and vomiting with diarrhea. The patient does carry the history of underlying 1. Renal cell carcinoma with metastatic disease to the lung, has undergone right total nephrectomy with resultant chronic kidney disease. 2. Ltj-[id number] type 2 diabetes mellitus. 3. Hypertension. 4. Hyperlipidemia. He was brought to the ER for the complaints of nausea, vomiting, and diarrhea since Saturday, 4 days prior to arrival. Probably, he had 7-8 watery bowel movements without any blood or melena with no recent travel. Ten days ago, he finished 10 days course of amoxicillin for the respiratory symptoms. He gives no history of any chest symptoms. He receives immunotherapy at [facility], and last therapy was 06/04/2019. He does have ongoing history of, as mentioned before, diabetes mellitus, renal cancer, hyperlipidemia, hypertension, and history of melanoma excision and right nephrectomy as well. He smokes 1 pack per day and is a former smoker, quit smoking about 20 years ago. At the time of admission to the hospital, he was taking carvedilol 25 mg twice a day, chlorthalidone 25 mg daily, glimepiride 2 mg twice a day, losartan 100 mg daily, simvastatin 40 mg daily. ALLERGIES: HE IS NOT ALLERGIC TO ANY MEDICATION. PHYSICAL EXAMINATION: GENERAL: On examination, he is awake, alert, cooperative, in no obvious acute distress. HEAD: Normocephalic with no cranial bruit. Ears, nose, throat examination is normal. NECK: Supple with no cervical bruit. No thyromegaly. No lymphadenopathy. HEART: Regular with no murmur. LUNGS: Clear. ABDOMEN: Soft. NEUROLOGICAL: He is awake, alert. Pupils round, regular. Monreal of vision full. Extraocular movements full. Face symmetrical. Tongue midline. Motor examination revealed him to have no drift of 1 side or other side. Reflexes are symmetrical but sluggish. Plantars are downgoing. There is no evidence of gross cerebellar deficit. He had decreased sensation distally in both lower extremities. ASSESSMENT AND PLAN: At present, he is being treated for the medical problems. He has had the head CT scan done, which was negative. We will follow along with and see if any further neurological investigation needs to be done. LAUREN HUYNH M.D. [employer]/TRACK AND FIELD COACH CR[employer]/TRACK AND FIELD COACH D I MT: Joelle
--- NOTE | 2019-06-11 14:22 | WPDINFPN2 ---
Progress Note: A&P Assessment and Plan (1) Diarrhea: Onset Date: 06/05/19 Qualifiers: Diarrhea type: unspecified type Qualified Code(s): R19.7 - Diarrhea, unspecified Code(s): R19.7 - Diarrhea, unspecified Status: Acute Assessment and Plan: 1. N/V/Diarrhea, I think due to his immunotherapy (though without knowing details, I cannot confirm). It is probably non infectious, although depending on his immune status CMV colitis is possible (very unusual in a non transplant patient, would need endoscopy to diagnose) 2. Fever today 3. Bacteriuria, asymptomatic except for today's fever REC Stop Ctx. Redo UA straight cath. BCs in process. Recheck liver panel. Tumor fever is also in the differential. Subjective Date/time seen: 06/11/19 14:22 Objective Data Vital Signs Vital Signs: Vital Signs - 24 hr 06/10/19 14:40 06/10/19 14:58 06/10/19 15:00 Temperature 37.3 C Pulse Rate 74 82 Respiratory Rate 24 H Blood Pressure 80/35 L 118/38 L 149/51 H Pulse Oximetry 88 L 06/10/19 15:10 06/10/19 16:00 06/10/19 17:00 Temperature 36.8 C 36.7 C Pulse Rate 74 71 Respiratory Rate 20 20 Blood Pressure 98/40 L 105/40 L Pulse Oximetry 96 95 96 06/10/19 19:26 06/10/19 20:00 06/10/19 23:34 Temperature 37.2 C 36.6 C Pulse Rate 68 68 68 Respiratory Rate 20 20 Blood Pressure 98/37 L 128/46 L Pulse Oximetry 99 98 06/11/19 00:00 06/11/19 01:51 06/11/19 04:00 Temperature 37.4 C Pulse Rate 70 71 98 Respiratory Rate 16 Blood Pressure 139/52 L Pulse Oximetry 100 06/11/19 06:00 06/11/19 08:00 06/11/19 08:05 Temperature 36.4 C L Pulse Rate 76 77 77 Respiratory Rate 24 H Blood Pressure 155/48 H Pulse Oximetry 100 06/11/19 10:00 06/11/19 12:00 06/11/19 12:03 Temperature 38.0 C H Pulse Rate 80 84 81 Respiratory Rate 28 H Blood Pressure 168/49 H Pulse Oximetry 100 Intake/Output Intake/Output: Intake & Output 06/08/19 06/09/19 06/10/19 06/11/19 23:59 23:59 23:59 23:59 Intake Total 1000 4200 4590 2254 Output Total 1225 850 650 Balance 1000 2975 3740 1604 Meds/Results Medications: Active Medications Generic Name Dose Route Start Last Admin Trade Name Freq PRN Reason Stop Dose Admin Carvedilol 25 mg 06/09/19 09:00 06/10/19 08:35 Coreg PO Not Given BID GUCCI Dextrose 12.5 gm 06/08/19 22:57 Dextrose 50% Syringe IV PUSH PRN PRN Hypoglycemia Protocol Glucagon 1 mg 06/08/19 22:57 Glucagon For Inj IM PRN PRN Hypoglycemia Protocol Glucose 15 gm 06/08/19 22:57 Glutose 15 PO PRN PRN Hypoglycemia Protocol Dextrose 1,000 mls @ 100 mls/hr 06/08/19 22:57 Dextrose 5% 1,000 Ml IVPB PRN PRN Hypoglycemia Protocol Ceftriaxone Sodium/Dextrose 1 gm in 50 mls @ 100 mls/hr 06/10/19 18:00 06/10/19 18:06 Rocephin 1 Gm/D5w 50 Ml IVPB Infused Q24H GUCCI Infusion Insulin Aspart 3 - 6 units 06/09/19 12:00 06/11/19 12:29 Novolog SUB-Q Not Given TIDWM [facility] Protocol Losartan Potassium 100 mg 06/09/19 09:00 06/10/19 08:35 Cozaar PO Not Given DAILY GUCCI Ondansetron HCl 4 mg 06/08/19 15:37 06/11/19 03:09 Zofran Inj IV PUSH 4 mg Q4H PRN Administration Nausea Simvastatin 40 mg 06/09/19 09:00 06/09/19 09:15 Zocor PO 40 mg DAILY GUCCI Administration Radiology Results: ITS Impressions Abdomen/Pelvis CT 06/08/19 14:33 IMPRESSION: 1. Liquid stool throughout the colon, consistent with diarrhea. No evidence of colitis. 2. Multiple nodules of the visualized lung bases, likely reflecting known metastatic renal cell carcinoma. 3. Periportal soft tissue density which may reflect metastatic disease. No prior studies available for comparison. Head CT 06/10/19 09:37 IMPRESSION: 1. No acute intracranial findings. 2. Chronic age related findings. Chest/Abdomen/Pelvis CT 06/10/19 09:52 IM
--- NOTE | 2019-06-11 15:22 | PC.NURSE ---
On 06/11/19, the student, [JUSTIN DURANT ], provided care and completed [facility] documentation on this patient. I have reviewed the student's documentation and agree with the findings.
--- NOTE | 2019-06-11 16:17 | PM.IMPN ---
Progress Note: A&P Assessment and Plan (1) Acute on chronic renal failure: Qualifiers: Acute renal failure type: unspecified Chronic kidney disease stage: unspecified stage Qualified Code(s): N17.9 - Acute kidney failure, unspecified; N18.9 - Chronic kidney disease, unspecified Code(s): N17.9 - Acute kidney failure, unspecified; N18.9 - Chronic kidney disease, unspecified Status: Acute Assessment and Plan: ED record shows his oncologist was contacted and reported his baseline Cr is around 2. He is s/p right total nephrectomy last year secondary to renal cell carcinoma. (2) Metabolic encephalopathy: Code(s): G93.41 - Metabolic encephalopathy Status: Acute Assessment and Plan: Lethargic this AM. Hypotensive this afternoon and rapid response was called. On reassessment, patient is more lethargic. Acute metabolic encephalopathy may be secondary to UTI. Urine and blood cultures drawn. Repeat UA now with positive nitrates and leukocyte esterase. ID and Neurology rounding on the case CT brain shows no acute intracranial abnormalities. Neurology rounding (3) Metastatic renal cell carcinoma to lung: Qualifiers: Laterality: unspecified laterality Qualified Code(s): C78.00 - Secondary malignant neoplasm of unspecified lung; C64.9 - Malignant neoplasm of unspecified kidney, except renal pelvis Code(s): C78.00 - Secondary malignant neoplasm of unspecified lung; C64.9 - Malignant neoplasm of unspecified kidney, except renal pelvis Status: Acute Assessment and Plan: Patient is s/p right total nephrectomy last spring after being diagnosed with renal cell carcinoma. He has known metastasis to lungs. CT abdomen here shows a soft tissue density which could either be lymphadenopathy or recurrence of his renal cell carcinoma. His oncologist is Dr Sexton at [facility] who he is scheduled to see 06/25. (4) UTI (urinary tract infection): Qualifiers: Urinary tract infection type: site unspecified Hematuria presence: with hematuria Qualified Code(s): N39.0 - Urinary tract infection, site not specified; R31.9 - Hematuria, unspecified Code(s): N39.0 - Urinary tract infection, site not specified Status: Acute Assessment and Plan: May be causing his change in mental status today. Repeat UA after change in his status now shows positive nitrates and leukocyte esterase. AWaiting urine cultures pending. Blood cultures pending.Id rounding (5) Diarrhea: Onset Date: 06/05/19 Qualifiers: Diarrhea type: unspecified type Qualified Code(s): R19.7 - Diarrhea, unspecified Code(s): R19.7 - Diarrhea, unspecified Status: Acute Assessment and Plan: With nausea and dry heaving. Improved. CT abdomen without any findings to explain his symptoms. Likely gastroenteritis viral in nature. Collect stool studies. ? CMV as per ID MD (6) Diabetes mellitus: Qualifiers: Diabetes mellitus type: type 2 Diabetes mellitus buttermaker insulin use: without usp use Diabetes mellitus complication status: without complication Qualified Code(s): E11.9 - Type 2 diabetes mellitus without complications Code(s): E11.9 - Type 2 diabetes mellitus without complications Status: Acute Assessment and Plan: His glimepiride is on hold. Continue to monitor with Accu-Cheks and cover with sliding scale insulin. (7) HLD (hyperlipidemia): Qualifiers: Hyperlipidemia type: unspecified Qualified Code(s): E78.5 - Hyperlipidemia, unspecified Code(s): E78.5 - Hyperlipidemia, unspecified Status: Acute Assessment and Plan: Home statin therapy held. (8) HTN (hypertension): Qualifier
[2019-06-11] MEDS: HEPARIN SODIUM 5,000 UNITS/ML VIAL 5000 UNITS SUB-Q ×2 (17:04→21:03)
[2019-06-11] MEDS: HYDROCORTISONE SODIUM SUCCINATE 100 MG/2 ML VIAL IV PUSH ×2 (17:04→21:03)
[2019-06-11 18:10] LABS: Glucose Point of Care 115 (65-105)
--- NOTE | 2019-06-11 19:04 | CONS_ITS ---
DATE OF CONSULTATION: 06/11/2019 REASON FOR CONSULTATION: Abnormal UA. HISTORY OF PRESENT ILLNESS: The patient is a 63-year-old male with kidney cancer, apparently renal cell. He had a right nephrectomy performed about 9 months ago and has been on immunotherapy. He has known metastases to the lungs and the family reports that the metastatic deposits have shrunk at least a little in size. His immunotherapy is ongoing. He developed nausea, vomiting, and diarrhea approximately [id number] weeks prior to admission and Dr. Pabon gave the patient amoxicillin. His symptoms seem to resolve. However, day after receiving his immunotherapy, and beginning on June 05, the patient developed recurrent nausea, vomiting, and diarrhea. Nausea was constant. The vomiting was of most foods, so not all and his diarrhea was thin liquid stools every day. This is without abdominal pain, hematemesis, hematuria, bright red blood per rectum, melena, or back pain. The patient did have diminished urine output; otherwise, had no voiding symptoms whatsoever. He presented to the hospital on the . For unknown reasons, a urinalysis was obtained. He has been given ceftriaxone. Consultation was requested today. I was not notified of the consult until an hour ago. He is on no ongoing immunosuppressants. No other difficulties. ALLERGIES: NONE KNOWN. PRESENT MEDICATIONS: No immunosuppressants. HABITS: Ex-smoker, having quit 20 years ago. No alcohol to excess. PAST MEDICAL HISTORY: In addition to the above, hypertension, hyperlipidemia, diabetes mellitus, and melanoma. REVIEW OF SYSTEMS: Weight loss some 10 pounds, poor appetite, difficulty swallowing though not odynophagia, and edema. A 14-point review otherwise negative. FAMILY HISTORY: Not pertinent to his present illness. 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 Lives at home alone locally and there is a family at the bedside. PHYSICAL EXAMINATION: GENERAL: This is a middle-aged male who appears actual age. No acute distress. VITAL SIGNS: Temperature currently 38.0, otherwise, has been afebrile since arrival and at home, 168/49, 81, 28, 100%. SKIN: No rashes. Warm and dry. EENT: Conjunctivae are normal. Pupils equal and round. The oropharynx, oral mucosa well hydrated. No paranasal sinus, erythema, edema, or tenderness. NECK: Without masses or thyromegaly. No meningismus. LUNGS: Coarse breath sounds, vesicular, clear to percussion, clear elsewhere in the mid to upper lung garcia. BACK: He has no left CVAT. CARDIAC: Regular rate and rhythm. No ectopy, murmur, or gallop. Pulses are 2+ and equal. ABDOMEN: Morbidly obese. No tenderness, mass, or organomegaly. Nondistended. Normal bowel sounds. EXTREMITIES: No clubbing, cyanosis, or edema. No venous varicosities. LABORATORY DATA: White count consistently normal. Hemoglobin 8.5, platelets are 140. His differential shows no significant abnormalities. Prothrombin time normal. Blood gas 7.38, 31, 65 on 2 L. His hyponatremia, CO2 is 20, BUN 33, creatinine 3.7, and glucose 122. Liver function tests normal except for an albumin 3.4. His urinalysis 2+ blood, positive nitrite, leukocyte esterase, 3 to 5 red cells, 79 white cells, moderate sediment and hyaline casts. Guaiac stool is negative. Influenza screen done for unknown reasons, negative. RADIOLOGY DATA: I personally reviewed his chest x-ray from today. He has atelectasis. No other findings. The radiologist has read cardiomegaly and possible pulmonary edema. Chest, abdomen, and pelvic CT pulmonary nodules, hilar adenopathy, atelectasis, emphysema, mass in the right renal fossa, and colonic fluid. Similar findings seen on admission 2 days earlier. JULITO
[2019-06-11 21:07] LABS: Glucose Point of Care 197 (65-105)
[2019-06-12] VITALS (16 sets, daily range): BP systolic 128–152; BP diastolic 50–90; PULSE 61–81; RESP 12–22; TEMP 36.3–37.1; O2SAT 96–100
[2019-06-12 05:20] LABS: Alanine Aminotransferase 21 U/L (4-50); Albumin Level 3.6 g/dL (3.5-5.1); Alkaline Phosphatase 29 U/L (38-126); Aspartate Amino Transferase 36 U/L (17-59); Bilirubin,Total 0.6 mg/dL (0.2-1.3)
[2019-06-12] MEDS: HYDROCORTISONE SODIUM SUCCINATE 100 MG/2 ML VIAL IV PUSH ×3 (05:35→21:09)
[2019-06-12] MEDS: HEPARIN SODIUM 5,000 UNITS/ML VIAL 5000 UNITS SUB-Q (05:35)
[2019-06-12 08:08] LABS: Glucose Point of Care 189 (65-105)
[2019-06-12 12:38] LABS: Glucose Point of Care 207 (65-105)
[2019-06-12] MEDS: INSULIN ASPART (*BKC) 100 UNITS/ML SUB-Q ×3 (13:51→21:11)
--- NOTE | 2019-06-12 13:56 | WPDINFPN2 ---
Progress Note: A&P Assessment and Plan (1) Diarrhea: Onset Date: 06/05/19 Qualifiers: Diarrhea type: unspecified type Qualified Code(s): R19.7 - Diarrhea, unspecified Code(s): R19.7 - Diarrhea, unspecified Status: Acute Assessment and Plan: 1. N/V/Diarrhea, I think due to his immunotherapy (though without knowing details, I cannot confirm). It is probably non infectious 2. Fever 06/11, resolved for the moment. Liver panel is normal 3. Bacteriuria, asymptomatic except for #2 3. Kidney tumor REC Off antibiotics. Straight cath results from 06/11 not yet available. Now on hydrocortisone (reason not yet documented). Tumor fever is also in the differential. Subjective Date/time seen: 06/12/19 13:56 Interval history: feeling better. BMs now soft, no longer liquid. Good appetite Exam Narrative: Exam Narrative: afebrile since last visit Const: General: comfortable and no acute distress Eyes: General: appearance normal, both eyes and all related structures Resp: Effort & Inspection: normal respiratory effort Auscultation: clear to auscultation bilaterally Cardio: Rate: regular rate Rhythm: regular rhythm Heart sounds: no gallops and no murmurs GI: Inspection: non-distended GI Palp: Yes Soft to palpation, No Tenderness to palpation present (GI) and No Guarding due to palpation present (GI) Objective Data Vital Signs Vital Signs: Vital Signs - 24 hr 06/11/19 14:00 06/11/19 15:07 06/11/19 16:00 Temperature 38.0 C H 37.6 C Pulse Rate 87 87 87 Respiratory Rate 36 H 22 H Blood Pressure 155/39 H 154/47 H Pulse Oximetry 97 06/11/19 18:00 06/11/19 20:00 06/11/19 22:00 Temperature 36.8 C Pulse Rate 85 84 65 Respiratory Rate 22 H Blood Pressure 137/48 L Pulse Oximetry 96 06/11/19 23:46 06/12/19 00:00 06/12/19 01:58 Temperature 36.2 C L Pulse Rate 68 66 68 Respiratory Rate 18 Blood Pressure 127/54 L Pulse Oximetry 99 06/12/19 04:00 06/12/19 06:00 06/12/19 08:00 Temperature 36.3 C L Pulse Rate 68 67 67 Respiratory Rate 12 Blood Pressure 128/60 Pulse Oximetry 97 06/12/19 08:51 06/12/19 10:00 06/12/19 10:29 Temperature 36.3 C L Pulse Rate 73 69 Respiratory Rate 20 Blood Pressure 149/53 H Pulse Oximetry 100 100 100 Intake/Output Intake/Output: Intake & Output 06/09/19 06/10/19 06/11/19 06/12/19 23:59 23:59 23:59 23:59 Intake Total 4200 4590 2254 535 Output Total 1225 850 650 650 Balance 2975 3740 1604 -115 Meds/Results Medications: Active Medications Generic Name Dose Route Start Last Admin Trade Name Freq PRN Reason Stop Dose Admin Carvedilol 25 mg 06/09/19 09:00 06/10/19 08:35 Coreg PO Not Given BID GUCCI Dextrose 12.5 gm 06/11/19 14:35 Dextrose 50% Syringe IV PUSH PRN PRN Hypoglycemia Protocol Glucagon 1 mg 06/11/19 14:35 Glucagon For Inj IM PRN PRN Hypoglycemia Protocol Glucose 15 gm 06/11/19 14:35 Glutose 15 PO PRN PRN Hypoglycemia Protocol Heparin Sodium (Porcine) 5,000 units 06/11/19 17:00 06/12/19 05:35 Heparin Sodium SUB-Q 5,000 units Q8HR GUCCI Administration Hydrocortisone Sodium Succinate 100 mg 06/11/19 22:00 06/12/19 05:35 Solu-Cortef IV PUSH 100 mg Q8HR GUCCI Administration Dextrose 1,000 mls @ 100 mls/hr 06/11/19 14:35 Dextrose 5% 1,000 Ml IVPB PRN PRN Hypoglycemia Protocol Insulin Aspart 4 - 8 units 06/11/19 17:00 06/12/19 13:51 Novolog SUB-Q 2 units TIDWM GUCCI Administration Protocol Losartan Potassium 100 mg 06/09/19 09:00 06/10/19 08:35 Cozaar PO Not Given DAILY GUCCI Ondansetron HCl 4 mg 06/08/19 15:37 06/11/19 03:09 Zofran Inj IV PUSH 4 mg Q4H PRN Administration Nausea Simvastatin 40 mg 06/09/19 09:00 06/09/19 09:15 Zocor PO 40 mg DAILY GUCCI Administration Radiology Results: ITS Impressions Abdomen/Pel
--- NOTE | 2019-06-12 16:14 | PM.IMPN ---
Progress Note: A&P Assessment and Plan (1) Acute on chronic renal failure: Qualifiers: Acute renal failure type: unspecified Chronic kidney disease stage: unspecified stage Qualified Code(s): N17.9 - Acute kidney failure, unspecified; N18.9 - Chronic kidney disease, unspecified Code(s): N17.9 - Acute kidney failure, unspecified; N18.9 - Chronic kidney disease, unspecified Status: Acute Assessment and Plan: ED record shows his oncologist was contacted and reported his baseline Cr is around 2. He is s/p right total nephrectomy last year secondary to renal cell carcinoma. (2) Metabolic encephalopathy: Code(s): G93.41 - Metabolic encephalopathy Status: Resolved Assessment and Plan: Rssolved pt appears back to baseline. Acute metabolic encephalopathy may be secondary to UTI. Urine and blood cultures drawn. Repeat UA now with positive nitrates and leukocyte esterase. ID and Neurology rounding on the case CT brain shows no acute intracranial abnormalities. Neurology rounding (3) Metastatic renal cell carcinoma to lung: Qualifiers: Laterality: unspecified laterality Qualified Code(s): C78.00 - Secondary malignant neoplasm of unspecified lung; C64.9 - Malignant neoplasm of unspecified kidney, except renal pelvis Code(s): C78.00 - Secondary malignant neoplasm of unspecified lung; C64.9 - Malignant neoplasm of unspecified kidney, except renal pelvis Status: Acute Assessment and Plan: Patient is s/p right total nephrectomy last spring after being diagnosed with renal cell carcinoma. He has known metastasis to lungs. CT abdomen here shows a soft tissue density which could either be lymphadenopathy or recurrence of his renal cell carcinoma. His oncologist is Dr Sexton at [facility] who he is scheduled to see 06/25. (4) UTI (urinary tract infection): Qualifiers: Urinary tract infection type: site unspecified Hematuria presence: with hematuria Qualified Code(s): N39.0 - Urinary tract infection, site not specified; R31.9 - Hematuria, unspecified Code(s): N39.0 - Urinary tract infection, site not specified Status: Acute Assessment and Plan: Repeat UA after change in his status now shows positive nitrates and leukocyte esterase. AWaiting urine cultures pending. Blood cultures pending.Id jose alberto (5) Diarrhea: Onset Date: 06/05/19 Qualifiers: Diarrhea type: unspecified type Qualified Code(s): R19.7 - Diarrhea, unspecified Code(s): R19.7 - Diarrhea, unspecified Status: Acute Assessment and Plan: With nausea and dry heaving. Improved. CT abdomen without any findings to explain his symptoms. Likely gastroenteritis viral in nature. Collect stool studies. ? CMV as per ID MD (6) Diabetes mellitus: Qualifiers: Diabetes mellitus type: type 2 Diabetes mellitus senior living insulin use: without senior living use Diabetes mellitus complication status: without complication Qualified Code(s): E11.9 - Type 2 diabetes mellitus without complications Code(s): E11.9 - Type 2 diabetes mellitus without complications Status: Acute Assessment and Plan: His glimepiride is on hold. Continue to monitor with Accu-Cheks and cover with sliding scale insulin. (7) HLD (hyperlipidemia): Qualifiers: Hyperlipidemia type: unspecified Qualified Code(s): E78.5 - Hyperlipidemia, unspecified Code(s): E78.5 - Hyperlipidemia, unspecified Status: Acute Assessment and Plan: Home statin therapy held. (8) HTN (hypertension): Qualifiers: Hypertension type: unspecified Qualified Code(s): I10 - Essential (primary) hypertension Code(s): I10 - [place]
[2019-06-12 16:45] LABS: Glucose Point of Care 249 (65-105)
[2019-06-12 20:47] LABS: Glucose Point of Care 301 (65-105)
[2019-06-13] VITALS (8 sets, daily range): BP systolic 138–154; BP diastolic 43–63; PULSE 57–71; RESP 16–20; TEMP 36.1–36.2; O2SAT 98–100
[2019-06-13 05:26] LABS: Hematocrit 24.1 % (42.0-52.0); Hemoglobin 8.5 g/dL (14.0-18.0); Mean Corpuscular HGB Conc 35.3 g/dl (32-36); Mean Corpuscular Hemoglobin 32.6 pg (26-34); Mean Corpuscular Volume 92.3 fl (80-100); Mean Platelet Volume 10.6 fl (7.4-10.4); Platelet Count Result 169 k/mm3 (150-375); Red Blood Count 2.61 M/mm3 (4.6-6.20); Red Cell Distribution Width 12.1 % (11.5-14.5); White Blood Count 11.6 K/mm3 (4.5-10.0)
[2019-06-13 05:45] LABS: Blood Urea Nitrogen 45 mg/dL (9-20); Calcium 8.2 mg/dL (8.4-10.2); Carbon Dioxide 18 mmol/L (22-30); Chloride 102 mmol/L (98-107); Estimated CRCL calculation 27 ml/min; Estimated Glomerular Filt Rate 22; Glucose 308 mg/dL (75-110); Potassium 4.7 mmol/L (3.4-5.0); Sodium 132 mmol/L (137-145)
[2019-06-13] MEDS: HYDROCORTISONE SODIUM SUCCINATE 100 MG/2 ML VIAL IV PUSH (05:49)
[2019-06-13 07:08] LABS: Glucose Point of Care 254 (65-105)
[2019-06-13] MEDS: INSULIN ASPART (*BKC) 100 UNITS/ML SUB-Q ×2 (07:57→11:51)
[2019-06-13 11:56] LABS: Glucose Point of Care 287 (65-105)
--- NOTE | 2019-06-13 13:56 | PM.DS ---
DS: Diagnosis Admitting Diagnosis Admitting Diagnosis: Acute kidney failure, unspecified Discharge Diagnosis (1) Acute on chronic renal failure: Qualifiers: Acute renal failure type: unspecified Chronic kidney disease stage: unspecified stage Qualified Code(s): N17.9 - Acute kidney failure, unspecified; N18.9 - Chronic kidney disease, unspecified Code(s): N17.9 - Acute kidney failure, unspecified; N18.9 - Chronic kidney disease, unspecified Status: Acute Assessment and Plan: ED record shows his oncologist was contacted and reported his baseline Cr is around 2. He is s/p right total nephrectomy last year secondary to renal cell carcinoma. Creat today is 2.9 (2) Metabolic encephalopathy: Code(s): G93.41 - Metabolic encephalopathy Status: Resolved Assessment and Plan: Resolved pt appears back to baseline. Acute metabolic encephalopathy may be secondary to UTI. UC shows ecoli, BC is negative. pt treated with iv rocephin transition to oral nitrofurantoin low dose short duration as pt has kidney impairment. CT brain shows no acute intracranial abnormalities. (3) Metastatic renal cell carcinoma to lung: Qualifiers: Laterality: unspecified laterality Qualified Code(s): C78.00 - Secondary malignant neoplasm of unspecified lung; C64.9 - Malignant neoplasm of unspecified kidney, except renal pelvis Code(s): C78.00 - Secondary malignant neoplasm of unspecified lung; C64.9 - Malignant neoplasm of unspecified kidney, except renal pelvis Status: Acute Assessment and Plan: Patient is s/p right total nephrectomy last spring after being diagnosed with renal cell carcinoma. He has known metastasis to lungs. CT abdomen here shows a soft tissue density which could either be lymphadenopathy or recurrence of his renal cell carcinoma. His oncologist is Dr Sexton at [facility] who he is scheduled to see 06/25. (4) UTI (urinary tract infection): Qualifiers: Hematuria presence: with hematuria Urinary tract infection type: site unspecified Qualified Code(s): N39.0 - Urinary tract infection, site not specified; R31.9 - Hematuria, unspecified Code(s): N39.0 - Urinary tract infection, site not specified Status: Acute Assessment and Plan: See above (5) Diarrhea: Onset Date: 06/05/19 Qualifiers: Diarrhea type: unspecified type Qualified Code(s): R19.7 - Diarrhea, unspecified Code(s): R19.7 - Diarrhea, unspecified Status: Acute Assessment and Plan: With nausea and dry heaving. Improved. CT abdomen without any findings to explain his symptoms. Likely gastroenteritis viral in nature. 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 (7) HLD (hyperlipidemia): Qualifiers: Hyperlipidemia type: unspecified Qualified Code(s): E78.5 - Hyperlipidemia, unspecified Code(s): E78.5 - Hyperlipidemia, unspecified Status: Acute Assessment and Plan: Home statin therapy held. (8) HTN (hypertension): Qualifiers: Hypertension type: unspecified Qualified Code(s): I10 - Essential (primary) hypertension Code(s): I10 - Essential (primary) hypertension Status: Acute Assessment and Plan: BP has regulated rest
== END 2019-06-13 17:40 | disposition home or self-care (01) | DRG 871 ==
LOC: ANHED 15:48 → ANH2MED 16:50 → ANHIMU 06-12 17:26 → ANH2MED 06-17 08:53 → ANHIMU 06-17 08:53
PROVIDERS: Internal Medicine Infectious Disease; Physician Assistant; Admitting Provider Family Medicine; Emergency Provider Emergency Medicine; Visit Provider Family Medicine
DX: A41.9 Sepsis, unspecified organism (principal); G93.41 Metabolic encephalopathy; N17.9 Acute kidney failure, unspecified; C78.02 Secondary malignant neoplasm of left lung; C78.01 Secondary malignant neoplasm of right lung; N39.0 Urinary tract infection, site not specified; E27.40 Unspecified adrenocortical insufficiency; E11.22 Type 2 diabetes mellitus with diabetic chronic kidney disease; Z85.528 Personal history of other malignant neoplasm of kidney; E78.5 Hyperlipidemia, unspecified; Z85.820 Personal history of malignant melanoma of skin; Z87.891 Personal history of nicotine dependence; N18.9 Chronic kidney disease, unspecified; E86.0 Dehydration; A08.4 Viral intestinal infection, unspecified; I12.9 Hypertensive chronic kidney disease with stage 1 through stage 4 chronic kidney disease, or unspecified chronic kidney disease; B96.20 Unspecified Escherichia coli [E. coli] as the cause of diseases classified elsewhere
CPT/HCPCS: 36415; 36600; 51701; 70450; 71045; 71250; 74176; 78582; 80048; 80053; 80076; 81001; 82140; 82274; 82805; 83605; 83690; 83735; 84100; 85025; 85027; 85380; 85610; 87015; 87040; 87045; 87046; 87077; 87086; 87088; 87186; 87269; 87272; 87324; 87427; 87804; 89055; 93970; 96361; 96374; 97110; 97116; 97161; 97165; 99285; A9270; A9540; A9558; G0378; J0696; J1644; J1720; J1815; J2405; J3475; J7030; J7120